=== PATIENT | male | born 1980 | race Caucasian/White ===

== ENCOUNTER 2017-05-09 13:45 | Emergency (ER) | payer BC ==
[2017-05-09] MEDS ORDERED: Ketorolac Tromethamine 30 MG/ML VIAL ONE (14:10)
[2017-05-09] MEDS ORDERED: Ondansetron HCl/PF 4 MG/2 ML Vial ONE (14:10)
[2017-05-09 14:21] LABS: #Basophils 0.1 thou/uL (0.0-0.2); #Eosinphils 0.2 thou/uL (0.0-0.7); #Lymphocytes 1.4 thou/uL (1.20-3.40); #Monocytes 0.8 thou/uL (0.11-0.59); #Neutrophils 8.2 thou/uL (1.40-6.50); %Basophils 1.3 % (0.0-1.0); %Eosinophils 2.1 % (0.0-10.0); %Lymphocytes 12.6 % (21.0-51.0); %Monocytes 7.5 % (0.0-10.0); %Neutrophils 76.5 % (42.0-75.0); Mean Corpuscular HGB CONC 34.2 g/dL (32.0-36.0); Mean Corpuscular Hemoglobin 30.3 pg (27.0-31.0); Mean Corpuscular Volume 88.6 fl (80.0-94.0); Mean Platelet Volume 7.8 fL (7.4-10.4); Platelet Count 227 thou/uL (130-400); RBC Distribution Width 11.8 % (11.5-14.5); Red Blood Cell (RBC) Count 4.63 mill/uL (4.70-6.10); White Blood Cell (WBC) Count 10.7 thou/uL (4.8-10.8)
[2017-05-09 14:31] LABS: Bilirubin Negative (Negative); Blood, Urine Negative (Negative); Clarity Clear (Clear); Glucose, Urine (Dipstick) Negative (Negative); Leukocyte Negative (Negative); Nitrite Negative (Negative); Protein, Urine (Dipstick) Negative (Neg-Trace); Urobilinogen 0.2 mg/dL (0.2-1.0)
[2017-05-09 14:35] LABS: Anion Gap 14 mmol/L (10-20); BUN (Urea Nitrogen) 19 mg/dL (8.9-20.6); Calc. Creatinine Clearance 0 mL/min (70-130); Calcium 9.8 mg/dL (7.8-10.44); Carbon Dioxide 23 mmol/L (22-29); Chloride 107 mmol/L (98-107); Estimated GFR-MDRD 66; Glucose 101 mg/dL (70-105); Potassium 4.1 mmol/L (3.5-5.1); Sodium 140 mmol/L (136-145)
--- NOTE | 2017-05-09 14:59 | CT ---
CT OF ABDOMEN AND PELVIS PERFORMED WITHOUT CONTRAST ENHANCEMENT: History: Left flank pain. FINDINGS: The lung bases are clear. The liver, spleen, pancreas, and gallbladder show no focal abnormalities on this noncontrast exam. T he liver measures approximately 20 cm in length. Right and left adrenal glands are normal. The right and left kidneys show bilateral renal calculi wi th a single approximately 4 mm calculus on the right and 2-3 mm upper pole left renal calculus. Ther e is also a left side hydronephrosis and hydroureter which is related to a 2 mm left ureterovesical junction calculus. There is periureteral fat stranding present. There is no significant periaortic o r mesenteric adenopathy. CT OF PELVIS PERFORMED WITHOUT CONTRAST ENHANCEMENT: The appendix is normal. There is no evidence of adenopathy, mass or free fluid. IMPRESSION: 1. Bilateral renal calculi. 2. 2 mm left ureterovesical junction calculus associated with mild left sided hydronephrosis and hyd roureter. POS: [facility]
[2017-05-09] MEDS ORDERED: Tamsulosin HCl 0.4 MG CAP ONE (15:19)
[2017-05-09] MEDS ORDERED: HYDROcodone/Acetaminophen 10/325 mg Tablet ONE (15:23)
[2017-05-09] MEDS ORDERED: Promethazine HCl 25 MG/ML VIAL ONE (15:24)
== END 2017-05-09 15:30 | disposition home or self-care (01) ==
LOC: MADERS 13:45
DX: N13.2 Hydronephrosis with renal and ureteral calculous obstruction (principal); J45.909 Unspecified asthma, uncomplicated; E03.9 Hypothyroidism, unspecified; E78.00 Pure hypercholesterolemia, unspecified; F41.9 Anxiety disorder, unspecified; Z79.899 Other long term (current) drug therapy
CPT/HCPCS: 74176; 80048; 81003; 82728; 85025; 96374; 96375; J1885; J2405; J2550